=== PATIENT | male | born 1950 | race Caucasian/White ===

== ENCOUNTER 2019-04-07 08:10 | Outpatient (CLI) | payer OTHER, SELFPAY ==
[2019-04-07] VITALS (10 sets, daily range): BP systolic 105–146; BP diastolic 68–91; PULSE 55–70; RESP 16–20; TEMP 36.2; O2SAT 94–99
--- NOTE | 2019-04-07 08:13 | DI.RAD.S_ITS ---
PROCEDURE: PAIN L/S TRANSFORAMINAL INJECT INDICATIONS: RADICULOPATHY FINDINGS: Fluoroscopic spot filming was performed to verify placement of spinal needles at the right L4-5 neural foramen region for epidural steroid injection, as labeled on the films. Appropriate location(s) of the needle tip(s) was confirmed by injection of iodinated contrast. IMPRESSION: Successful right-sided needle tip localization for epidural steroid injection along the course of the nerve root, right L4-L5 paravertebral level. Dictated by: Tl Trujillo M.D. on 04/07/2019 at 10:23 Approved by: Tl Trujillo M.D. on 04/07/2019 at 10:24
[2019-04-07] MEDS: MIDAZOLAM 5 MG/5 ML VIAL IV (09:06)
[2019-04-07] MEDS: fentaNYL 100 MCG/2 ML INJ 50 MCG IV (09:07)
[2019-04-07] MEDS: IOPAMIDOL 15 ML VIAL 3 ML INJ (09:14)
[2019-04-07] MEDS: DEXAMETHASONE 10 MG/ML VIAL 20 MG INJ (09:14)
[2019-04-07] MEDS: BETAMETHASONE 30 MG/5 ML MDV 6 MG INJ (09:14)
[2019-04-07] MEDS: BUPIVACAINE 0.25% (PF) VIAL 2 ML INJ (09:14)
--- NOTE | 2019-04-07 09:21 | PC.NURSE ---
ASSISTING PT OFF TABLE AND TRANSPORTING TO POST PROC AREA IN STABLE CONDITION
--- NOTE | 2019-04-07 09:28 | P.PCN_ITS ---
Procedures Date/Time Date of procedure: 04/07/19 Time of procedure: 09:28 General Procedure description: PREOP DIAGNOSIS 1. FORMAINAL STENOSIS WITH LE SYMPTOMS POST OP DIAGNOSIS 1. FORMAINAL STENOSIS WITH LE SYMPTOMS PROCEDURES 1. FLUOROSCOPICALLY GUIDED CONTRAST CONTROLLED TRANSFORAMINAL EPIDURAL STEROID INJECTION - RIGHT L4/5 TFESI PHYSICIAN: Philip Perez DO INDICATIONS: Zaki is referred by for treatment of Foraminal Stenosis with Right LE Symptoms FINDINGS Foraminal Nerve Root Compression secondary to disc disease and facet hypertrophy DESCRIPTION OF PROCEDURE: Following review of allergy and review of potential side effects and complications, including, but not necessarily limited to, infection, allergic reaction, local tissue breakdown, stroke, temporary or permanent nerve injury, paralysis, and possible , the patient indicated that the patient understood and agreed to proceed. An informed consent document was signed by the patient, witnessed by a nurse, and placed in the patient's chart. Additionally, other treatment options including medications, modalities, and physical therapy were reviewed with the patient. After review of previous anaesthesic history and IV conscious sedation the patient was deemed safe to proceed with todays procedure with IV conscious sedation as ASA class II designation. Safety time-out was performed to confirm patient ID, procedure to be performed and site of procedure. IV sedation was accomplished with a combination of 2mg of Versed and 50mcg of Fentanyl was administered by the RN after DO order, titrated to patient comfort during the course of the procedure while the patient remained responsive to all verbal commands In the prone position following sterile prep and drape of the lumbar region, the Right L4/5 posterior neuroforamen was identified fluoroscopically. The skin was anesthetized via a 25-gauge 1.5-inch needle with 1% lidocaine solution. At this point, a 25-gauge 3.5-inch spinal needle was atraumatically introduced and advanced under fluoroscopic guidance through the posterior Right L4/5 neuroforamen to approximately the anterior aspect of the canal. Depth was confirmed on lateral view. Following negative aspiration, injection of approximately 1.5 cc of Isovue 200 under live fluoroscopy in the AP view confirmed excellent flow along the nerve root, into the epidural space without vascular or intrathecal uptake observed Radiological data, including multiple fluoroscopic views of the lumbosacral spine, reveal a spinal needle at the right L4/5 posterior neuroforamen. Subsequent views show flow of contrast material flowing superiorly and inferiorly along the nerve root confirming epidural flow. Subsequently, a test dose of 1.5 cc of 1% lidocaine solution was administered and patient was observed for two minutes for signs or symptoms of complications, including abdominal pain, shortness of breath, bilateral upper or lower extremity weakness, nausea and vomiting, prior to steroid injection. At this point, a total of 3cc or 20mg of dexamethasone and 6mg of betamethasone was injected without incident. The procedure tolerated the procedure well without signs or symptoms of complications prior to transfer to the recovery area continued monitoring without incident.The patient was then transferred to the recovery area where they were observed for an appropriate time after the injection. The patient reported a VAS score of 7 prior to the procedure and a post- procedure VAS of 0. Total Fluoroscopy Time: 20.9 seconds Total Conscious Sedation Time: 24min POST OP INSTRUCTIONS The patient was provided a Pain Log to continue to record their response to the target-specific procedure prior to follow-up visit with their referring physician. Additionally, specific post-injection care instructions and a contact number to our office were provided if concerns arise regarding possible complications associated with the procedure are suspected. Philip Perez, Complications: none
--- NOTE | 2019-04-07 09:29 | PC.NURSE ---
To recovery room at 0925 stable and ambulatory to chair
== END 2019-04-07 09:51 | disposition home or self-care (01) ==
LOC: RAD 08:11
PROVIDERS: PCP Family Medicine; Visit Provider Physical Medicine & Rehabilitation
DX: M48.061 Spinal stenosis, lumbar region without neurogenic claudication (principal); M51.16 Intervertebral disc disorders with radiculopathy, lumbar region; M47.27 Other spondylosis with radiculopathy, lumbosacral region
CPT/HCPCS: 64483; 99152; J0702; J1100; J2250; J3010

== ENCOUNTER 2019-06-12 12:59 | Outpatient (CLI) | payer OTHER, SELFPAY ==
[2019-06-12] VITALS (8 sets, daily range): BP systolic 128–142; BP diastolic 75–98; PULSE 61–72; RESP 16–20; TEMP 36.2; O2SAT 93–98
--- NOTE | 2019-06-12 13:00 | DI.RAD.S_ITS ---
PROCEDURE: PAIN L/SI FACET INJ/BLK 1STL INDICATIONS: SPONDYLOSIS FINDINGS: Fluoroscopic spot filming was performed to verify placement of spinal needles at the L4-L5 and L5-S1 level(s), as labeled on the films. Appropriate location(s) of the needle tip(s) was confirmed by injection of iodinated contrast. IMPRESSION: Fluoroscopy for pain management. Dictated by: Juju Francisco M.D. on 06/12/2019 at 17:09 Approved by: Juju Francisco M.D. on 06/12/2019 at 17:09
[2019-06-12] MEDS: MIDAZOLAM 5 MG/5 ML VIAL IV (14:17)
[2019-06-12] MEDS: fentaNYL 100 MCG/2 ML INJ 50 MCG IV (14:19)
[2019-06-12] MEDS: LIDOCAINE 1% 20 ML 10 ML INJ (14:23)
[2019-06-12] MEDS: IOPAMIDOL 15 ML VIAL 3 ML INJ (14:23)
[2019-06-12] MEDS: BETAMETHASONE 30 MG/5 ML MDV 12 MG INJ (14:24)
[2019-06-12] MEDS: BUPIVACAINE 0.5% (PF) VIAL 2 ML INJ (14:24)
--- NOTE | 2019-06-12 14:25 | PC.NURSE ---
ASSISTING PT OFF TABLE AND TRANSPORTING TO POST PROC AREA IN STABLE CONDITION.
--- NOTE | 2019-06-12 14:29 | P.PCN_ITS ---
Procedures Date/Time Date of procedure: 06/12/19 Time of procedure: 14:29 General Procedure description: PREOP DIAGNOSIS 1. FACET ARTHROPATHY, 2. AXIAL LBP, 3. MULTILEVEL DDD, POST OP DIAGNOSIS 1. FACET ARTHROPATHY, 2. AXIAL LBP, 3. MULTILEVEL DDD, PROCEDURES 1. FLUORSCOPICALLY GUIDED CONTRAST CONTROLLED FACET JOINT INJECTIONS RIGHT L4/5, L5/S1 SURGEON: Philip Perez, DO INDICATIONS Zaki is referred by CANDE Franz for treatment of Axial LBP FINDINGS Multilevel Facet Arthropathy with Clinically significant axial LBP DESCRIPTION OF PROCEDURE Fluoroscopically guided, contrast-controlled right L4/5, L5/S1 facet joint injections. Following review of allergy and review of potential side effects and complications, including, but not necessarily limited to, infection, allergic reaction, local tissue breakdown, stroke, temporary or permanent nerve injury, paralysis, and possible , the patient indicated that the patient understood and agreed to proceed. An informed consent document was signed by the patient, witnessed by a nurse, and placed in the patient's chart. Additionally, other treatment options including medications, modalities, and physical therapy were reviewed with the patient. After review of previous anaesthesic history and IV conscious sedation the patient was deemed safe to proceed with todays procedure with IV conscious sedation as ASA class II designation. Safety time-out was performed to confirm patient ID, procedure to be performed and site of procedure. IV sedation was accomplished with a combination of 3 of Versed and 50mcg of Fentanyl was administered by the RN after DO order, titrated to patient comfort during the course of the procedure while the patient remained responsive to all verbal commands. In the prone position, following sterile prep and drape of the lumbar region, the posterior aspect of the right L4/5, L5/S1 facet joints were identified fluoroscopically. The skin was anesthetized via a 25-gauge 1.5-inch needle with 1% lidocaine solution into the corresponding facet joints. At this point, a 22- gauge 3.5-inch spinal needle was atraumatically introduced and advanced under fluoroscopic guidance into the corresponding facet joints. Following negative aspiration, injections of approximately 0.2-cc of Isovue 200 confirmed interarticular placement without vascular uptake. Radiological data, including multiple fluoroscopic views of the lumbosacral spine, reveal a spinal needle at the right L4/5, L5/S1 facet joints. Subsequent views show flow of contrast material both superiorly and inferiorly within the joint space without vascular or intrathecal uptake. At this point, a total of 0.5 cc including a mixture of 0.25cc Marcaine and 0.25cc betamethasone was injected without complication into each of the corresponding facet joints. The procedure tolerated the procedure well without signs or symptoms of complications prior to transfer to the recovery area continued monitoring without incident. The patient was then transferred to the recovery area where they were observed for an appropriate period of time after the injection. The patient reported a VAS score of 7 prior to the procedure and a post-procedure VAS of 0. Total Fluoroscopy Time: 12.7 seconds Total Conscious Sedation Time: 24min POST OP INSTRUCTIONS The patient was provided a Pain Log to continue to record their response to the target-specific procedure prior to follow-up visit with their referring physician. Additionally, specific post-injection care instructions and a contact number to our office were provided if concerns arise regarding possible complications associated with the procedure are suspected. Philip Perez, Complications: none
== END 2019-06-12 14:53 | disposition home or self-care (01) ==
LOC: RAD 13:00
PROVIDERS: PCP Physician Assistant; Visit Provider Physical Medicine & Rehabilitation
DX: M47.816 Spondylosis without myelopathy or radiculopathy, lumbar region (principal); M47.817 Spondylosis without myelopathy or radiculopathy, lumbosacral region; M54.5 Low back pain; M51.36 Other intervertebral disc degeneration, lumbar region; M51.37 Other intervertebral disc degeneration, lumbosacral region
CPT/HCPCS: 64493; 99152; J0702; J2250; J3010

== ENCOUNTER 2019-09-01 14:44 | Outpatient (CLI) | payer OTHER, SELFPAY ==
[2019-09-01] VITALS (8 sets, daily range): BP systolic 115–127; BP diastolic 69–81; PULSE 56–66; RESP 14–18; TEMP 36.1; O2SAT 96–98
--- NOTE | 2019-09-01 14:47 | DI.RAD.S_ITS ---
PROCEDURE: PAIN L/S TRANSFORAMINAL INJECT INDICATIONS: SPINAL STENOSIS FINDINGS: Fluoroscopic spot filming was performed to verify placement of spinal needles at the L4-L5 level(s), as labeled on the films. Appropriate location(s) of the needle tip(s) was confirmed by injection of iodinated contrast. Dictated by: Uli Quach M.D. on 09/01/2019 at 16:45 Approved by: Uli Quach M.D. on 09/01/2019 at 16:45
[2019-09-01] MEDS: MIDAZOLAM 5 MG/5 ML VIAL IV (15:41)
[2019-09-01] MEDS: IOPAMIDOL 15 ML VIAL 3 ML INJ (15:49)
[2019-09-01] MEDS: BETAMETHASONE 30 MG/5 ML MDV 6 MG INJ (15:49)
[2019-09-01] MEDS: BUPIVACAINE 0.25% (PF) VIAL 2 ML INJ (15:49)
[2019-09-01] MEDS: DEXAMETHASONE 10 MG/ML VIAL 20 MG INJ (15:50)
--- NOTE | 2019-09-01 15:54 | PC.NURSE ---
ASSISTING PT OFF TABLE AND TRANSPORTING TO POST PROC AREA IN STABLE CONDITION. PASSING RN CARE OF PT OFF TO NA Warner RN.
--- NOTE | 2019-09-01 15:56 | P.PCN_ITS ---
Procedures Date/Time Date of procedure: 09/01/19 Time of procedure: 15:56 General Procedure description: PREOP DIAGNOSIS 1. FORMAINAL STENOSIS WITH LE SYMPTOMS POST OP DIAGNOSIS 1. FORMAINAL STENOSIS WITH LE SYMPTOMS PROCEDURES 1. FLUOROSCOPICALLY GUIDED CONTRAST CONTROLLED TRANSFORAMINAL EPIDURAL STEROID INJECTION - RIGHT L4/5 TFESI PHYSICIAN: Philip Perez DO INDICATIONS: Zaki is referred by CANDE Franz for treatment of Foraminal Stenosis with Right LE Symptoms FINDINGS Foraminal Nerve Root Compression secondary to disc disease and facet hypertrophy DESCRIPTION OF PROCEDURE: Following review of allergy and review of potential side effects and complications, including, but not necessarily limited to, infection, allergic reaction, local tissue breakdown, stroke, temporary or permanent nerve injury, paralysis, and possible , the patient indicated that the patient understood and agreed to proceed. An informed consent document was signed by the patient, witnessed by a nurse, and placed in the patient's chart. Additionally, other treatment options including medications, modalities, and physical therapy were reviewed with the patient. After review of previous anaesthesic history and IV conscious sedation the patient was deemed safe to proceed with todays procedure with IV conscious sedation as ASA class II designation. Safety time-out was performed to confirm patient ID, procedure to be performed and site of procedure. IV sedation was accomplished with 3mg of Versed was administered by the RN after DO order, titrated to patient comfort during the course of the procedure while the patient remained responsive to all verbal commands In the prone position following sterile prep and drape of the lumbar region, the Right L4/5 posterior neuroforamen was identified fluoroscopically. The skin was anesthetized via a 25-gauge 1.5-inch needle with 1% lidocaine solution. At this point, a 25-gauge 3.5-inch spinal needle was atraumatically introduced and advanced under fluoroscopic guidance through the posterior Right L4/5 neuroforamen to approximately the anterior aspect of the canal. Depth was confirmed on lateral view. Following negative aspiration, injection of approximately 1.5 cc of Isovue 200 under live fluoroscopy in the AP view confirmed excellent flow along the nerve root, into the epidural space without vascular or intrathecal uptake observed Radiological data, including multiple fluoroscopic views of the lumbosacral spine, reveal a spinal needle at the right L4/5 posterior neuroforamen. Subsequent views show flow of contrast material flowing superiorly and inferiorly along the nerve root confirming epidural flow. Subsequently, a test dose of 1.5 cc of 0.25 Marcaine solution was administered and patient was observed for two minutes for signs or symptoms of complications, including abdominal pain, shortness of breath, bilateral upper or lower extremity weakness, nausea and vomiting, prior to steroid injection. At this point, a total of 3cc or 20mg of dexamethasone and 6mg of betamethasone was injected without incident. The procedure tolerated the procedure well without signs or symptoms of complications prior to transfer to the recovery area continued monitoring without incident.The patient was then transferred to the recovery area where they were observed for an appropriate time after the injection. The patient reported a VAS score of 7 prior to the procedure and a post- procedure VAS of 0. Total Fluoroscopy Time: 9seconds Total Conscious Sedation Time: 24min POST OP INSTRUCTIONS The patient was provided a Pain Log to continue to record their response to the target-specific procedure prior to follow-up visit with their referring physician. Additionally, specific post-injection care instructions and a contact number to our office were provided if concerns arise regarding possible complications associated with the procedure are suspected. Philip Perez DO Complications: none
--- NOTE | 2019-09-01 16:19 | PC.NURSE ---
Pt vital signs meet discharge criteria, however, will continue to monitor pt due to unsteady gait.
--- NOTE | 2019-09-01 17:19 | PC.NURSE ---
Pt continues to have unsteady gait, Provider at bedside assessing pt, care handed off to Evita LI.
== END 2019-09-01 17:40 | disposition home or self-care (01) ==
LOC: RAD 14:46
PROVIDERS: PCP Physician Assistant; Visit Provider Physical Medicine & Rehabilitation
DX: M48.061 Spinal stenosis, lumbar region without neurogenic claudication (principal); M51.16 Intervertebral disc disorders with radiculopathy, lumbar region
CPT/HCPCS: 64483; 99152; J0702; J1100; J2250; J3010

== ENCOUNTER → 2020-06-21 08:58 | Outpatient (CLI) | payer MEDICARE, OTHER, SELFPAY ==
[2020-06-21 11:06] LABS: COVID19 -Nasal RAPID Negative (Negative)
== END ==
PROVIDERS: PCP Physician Assistant; Visit Provider Physical Medicine & Rehabilitation
DX: Z11.59 Encounter for screening for other viral diseases (principal)
CPT/HCPCS: 87635; C9803

== ENCOUNTER 2020-06-23 14:19 | Outpatient (CLI) | payer MEDICARE, OTHER, SELFPAY ==
[2020-06-23] VITALS (8 sets, daily range): BP systolic 117–136; BP diastolic 72–85; PULSE 56–63; RESP 12–18; TEMP 36.1–36.4; O2SAT 93–98
--- NOTE | 2020-06-23 14:21 | DI.RAD.S_ITS ---
PROCEDURE: PAIN L/S TRANSFORAMINAL INJECT INDICATIONS: SPONDYLOSIS COMPARISON: [facility], , PAIN L/S TRANSFORAMINAL INJECT, 09/01/2019, 15:44. FINDINGS: Fluoroscopic spot filming was performed to verify placement of a spinal needle at the L4-L5 level, as labeled on the films. Appropriate location of the needle tip was confirmed by injection of iodinated contrast. IMPRESSION: Intraprocedural examination within normal limits. Dictated by: Dixon Steel M.D. on 06/23/2020 at 16:22 Approved by: Dixon Steel M.D. on 06/23/2020 at 16:23
[2020-06-23] MEDS: fentaNYL 100 MCG/2 ML INJ 50 MCG IV (15:00)
[2020-06-23] MEDS: MIDAZOLAM 5 MG/5 ML VIAL IV (15:00)
[2020-06-23] MEDS: BUPIVACAINE 0.25% (PF) VIAL 2 ML INJ (15:07)
[2020-06-23] MEDS: IOPAMIDOL 15 ML VIAL 3 ML INJ (15:07)
[2020-06-23] MEDS: BETAMETHASONE 30 MG/5 ML MDV 6 MG INJ (15:08)
[2020-06-23] MEDS: DEXAMETHASONE 10 MG/ML VIAL 20 MG INJ (15:08)
--- NOTE | 2020-06-23 15:11 | P.PCN_ITS ---
Date/Time/Diagnoses Date of procedure: 06/23/20 Time of procedure: 15:12 Pre-procedure diagnosis: 1. FORAMINAL STENOSIS WITH LE SYMPTOMS Post-procedure diagnosis: same Procedure Notes Procedure: 1. FLUOROSCOPICALLY GUIDED CONTRAST CONTROLLED TRANSFORAMINAL EPIDURAL STEROID INJECTION - RIGHT L4/5 TFESI Indications: Zaki is referred by CANDE Franz for treatment of Foraminal Stenosis with Right LE Symptoms Physician: Philip Perez Total Fluoroscopy time (seconds): 7 Total sedation minutes: 7 Complications: none Procedure in detail & Post-procedure care: FINDINGS Foraminal Nerve Root Compression secondary to disc disease and facet hypertrophy DESCRIPTION OF PROCEDURE Following review of allergy and review of potential side effects and complications, including, but not necessarily limited to, infection, allergic reaction, local tissue breakdown, stroke, temporary or permanent nerve injury, paralysis, and possible , the patient indicated that the patient understood and agreed to proceed. An informed consent document was signed by the patient, witnessed by a nurse, and placed in the patient's chart. Additionally, other treatment options including medications, modalities, and physical therapy were reviewed with the patient. After review of previous anaesthesic history and IV conscious sedation the patient was deemed safe to proceed with today?s procedure with IV conscious sedation as ASA class II designation. Safety time-out was performed to confirm patient ID, procedure to be performed and site of procedure. IV sedation was accomplished with a combination of 2mg of Versed and 50mcg of Fentanyl was administered by the RN after DO order, titrated to patient comfort during the course of the procedure while the patient remained responsive to all verbal c ommands In the prone position following sterile prep and drape of the lumbar region, the Right L4/5 posterior neuroforamen was identified fluoroscopically. The skin was anesthetized via a 25-gauge 1.5-inch needle with 1% lidocaine solution. At this point, a 25-gauge 3.5-inch spinal needle was atraumatically introduced and advanced under fluoroscopic guidance through the posterior Right L4/5 neuroforamen to approximately the anterior aspect of the canal. Depth was confirmed on lateral view. Following negative aspiration, injection of approximately 1.5cc of Isovue 200 under live fluoroscopy in the AP view confirmed excellent flow along the nerve root, into the epidural space without vascular or intrathecal uptake observed Radiological data, including multiple fluoroscopic views of the lumbosacral spine, reveal a spinal needle at the right L4/5 posterior neuroforamen. Subsequent views show flow of contrast material flowing superiorly and inferiorly along the nerve root confirming epidural flow. Subsequently, a test dose of 1.5 cc of 1% lidocaine solution was administered and patient was observed for two minutes for signs or symptoms of complications, including abdominal pain, shortness of breath, bilateral upper or lower extremity weakness, nausea and vomiting, prior to steroid injection. At this point, a total of 3cc or 20mg of dexamethasone and 6mg of betamethasone was injected without incident. The procedure tolerated the procedure well without signs or symptoms of complications prior to transfer to the recovery area continued monitoring without incident. The patient was then transferred to the recovery area where they were observed for an appropriate time after the injection. The patient reported a VAS score of 7 prior to the procedure and a post- procedure VAS of 0. POST OP INSTRUCTIONS The patient was provided a Pain Log to continue to record their response to the target-specific procedure prior to follow-up visit with their referring physician. Additionally, specific post-injection care instructions and a contact number to our office were provided if concerns arise regarding possible complications associated with the procedure are suspected.
== END 2020-06-23 15:30 | disposition home or self-care (01) ==
LOC: RAD 14:21
PROVIDERS: PCP Physician Assistant; Referring Provider Physician Assistant; Visit Provider Physical Medicine & Rehabilitation
DX: M48.061 Spinal stenosis, lumbar region without neurogenic claudication (principal); M47.27 Other spondylosis with radiculopathy, lumbosacral region; M43.16 Spondylolisthesis, lumbar region
CPT/HCPCS: 64483; J0702; J1100; J2250; J3010

== ENCOUNTER → 2020-08-15 09:48 | Outpatient (CLI) | payer MEDICARE, OTHER, SELFPAY ==
--- NOTE | 2020-08-15 09:50 | DI.RAD.S_ITS ---
PROCEDURE: XR LUMBAR SPINE MIN 4V INDICATIONS: progressive LBP TECHNIQUE: 5 views of the lumbar spine were acquired. COMPARISON: Outside Film, CR, XR LUMBAR SPINE 2 OR 3 VIEWS, 10/09/2018, 15:59. Outside Film, CR, XR LUMBAR SPINE 2 OR 3 VIEWS, 10/09/2018, 15:59. Outside Film, MR, MR LUMBAR SPINE WITHOUT CONTRAST, 11/07/2018, 8:56. FINDINGS: Bones: 5 nonrib-bearing vertebrae are present. There is grade 2 L4-L5 anterolisthesis secondary to L4 part intake ileus defects and facet hypertrophy. No vertebral body compression fractures. No suspicious bony lesions. Severe L4-L5 degenerative disc disease. Mild to moderate L1-L2, L2-L3 and L5-S1 degenerative disc disease. Mild L3-L4 degenerative disc disease. Mild L1-L2, L2-L3, L3-L4 facet arthropathy. My L4-L5 and L5-S1 facet arthropathy. Soft tissues: Overlying bowel gas pattern is normal. No suspicious soft tissue calcifications. Oblique images: Bilateral L4 pars interarticularis defects. IMPRESSION: 1. Grade 2 L5-S1 spondylolisthesis. 2. Multilevel degenerative disease. 3. Multilevel facet arthropathy Dictated by: Kenia Bassett MD, PhD on 08/15/2020 at 11:04 Approved by: Kenia Bassett MD, PhD on 08/15/2020 at 11:09
== END ==
PROVIDERS: PCP Physician Assistant; Referring Provider Physical Medicine & Rehabilitation; Visit Provider Physical Medicine & Rehabilitation
DX: M47.816 Spondylosis without myelopathy or radiculopathy, lumbar region (principal); M47.817 Spondylosis without myelopathy or radiculopathy, lumbosacral region; M51.36 Other intervertebral disc degeneration, lumbar region; M51.37 Other intervertebral disc degeneration, lumbosacral region; M43.17 Spondylolisthesis, lumbosacral region; M17.11 Unilateral primary osteoarthritis, right knee; M19.049 Primary osteoarthritis, unspecified hand; M43.16 Spondylolisthesis, lumbar region
CPT/HCPCS: 72110; 99215

== ENCOUNTER → 2021-01-31 08:10 | Outpatient (CLI) | payer MEDICARE, OTHER, SELFPAY ==
[2021-01-31 12:25] LABS: COVID19 -Nasal RAPID Negative (Negative)
== END ==
PROVIDERS: PCP Physician Assistant; Visit Provider Physical Medicine & Rehabilitation
DX: Z20.822 Contact with and (suspected) exposure to COVID-19 (principal)
CPT/HCPCS: 87635; C9803

== ENCOUNTER 2021-02-02 12:14 | Outpatient (CLI) | payer MEDICARE, OTHER, SELFPAY ==
[2021-02-02] VITALS (8 sets, daily range): BP systolic 117–126; BP diastolic 57–80; PULSE 59–85; RESP 13–20; TEMP 36.8; O2SAT 95–99
--- NOTE | 2021-02-02 12:18 | DI.RAD.S_ITS ---
PROCEDURE: PAIN L/S TRANSFORAMINAL INJECT INDICATIONS: SPONDYLOSIS COMPARISON: [facility], XA, PAIN L/S TRANSFORAMINAL INJECT, 06/23/2020, 15:02. [facility], XA, PAIN L/S TRANSFORAMINAL INJECT, 09/01/2019, 15:44. FINDINGS: Fluoroscopic spot filming was performed to verify placement of spinal needles at the right L4-5 neural foramen level(s), as labeled on the films. Appropriate location(s) of the needle tip(s) was confirmed by injection of iodinated contrast. IMPRESSION: Successful needle tip localization at the right L4-5 neural foramen for transforaminal epidural steroid injection. Dictated by: Tl Trujillo M.D. on 02/02/2021 at 14:34 Approved by: Tl Trujillo M.D. on 02/02/2021 at 14:34
[2021-02-02] MEDS: MIDAZOLAM 5 MG/5 ML VIAL IV (13:15)
[2021-02-02] MEDS: fentaNYL 100 MCG/2 ML INJ 50 MCG IV (13:15)
[2021-02-02] MEDS: BUPIVACAINE 0.25% (PF) VIAL 2 ML INJ (13:22)
[2021-02-02] MEDS: BETAMETHASONE 30 MG/5 ML MDV 6 MG INJ (13:22)
[2021-02-02] MEDS: IOPAMIDOL 15 ML VIAL 3 ML INJ (13:22)
[2021-02-02] MEDS: DEXAMETHASONE 10 MG/ML VIAL 20 MG INJ (13:22)
--- NOTE | 2021-02-02 13:27 | P.PCN_ITS ---
Date/Time/Diagnoses Date of procedure: 02/02/21 Time of procedure: 13:27 Pre-procedure diagnosis: 1. FORAMINAL STENOSIS WITH LE SYMPTOMS Post-procedure diagnosis: same Procedure Notes Procedure: 1. FLUOROSCOPICALLY GUIDED CONTRAST CONTROLLED TRANSFORAMINAL EPIDURAL STEROID INJECTION - RIGHT L4/5 TFESI Indications: Zaki is referred by Dr. Rucker for treatment of Foraminal Stenosis with Right LE Symptoms Physician: Philip Perez Total Fluoroscopy time (seconds): 7 Total sedation minutes: 10 Complications: none Procedure in detail & Post-procedure care: FINDINGS Foraminal Nerve Root Compression secondary to disc disease and facet hypertrophy DESCRIPTION OF PROCEDURE Following review of allergy and review of potential side effects and complications, including, but not necessarily limited to, infection, allergic reaction, local tissue breakdown, stroke, temporary or permanent nerve injury, paralysis, and possible , the patient indicated that the patient understood and agreed to proceed. An informed consent document was signed by the patient, witnessed by a nurse, and placed in the patient's chart. Additionally, other treatment options including medications, modalities, and physical therapy were reviewed with the patient. After review of previous anaesthesic history and IV conscious sedation the patient was deemed safe to proceed with today?s procedure with IV conscious sedation as ASA class II designation. Safety time-out was performed to confirm patient ID, procedure to be performed and site of procedure. IV sedation was accomplished with a combination of 2mg of Versed and 50mcg of Fentanyl was administered by the RN after DO order, titrated to patient comfort during the course of the procedure while the patient remained responsive to all verbal com mands In the prone position following sterile prep and drape of the lumbar region, the right L4/5 posterior neuroforamen was identified fluoroscopically. The skin was anesthetized via a 25-gauge 1.5-inch needle with 1% lidocaine solution. At this point, a 25-gauge 3.5-inch spinal needle was atraumatically introduced and advanced under fluoroscopic guidance through the posterior right L4/5 ne uroforamen to approximately the anterior aspect of the canal. Depth was confirmed on lateral view. Following negative aspiration, injection of approximately 1.5cc of Isovue 200 under live fluoroscopy in the AP view confirmed excellent flow along the nerve root, into the epidural space without vascular or intrathecal uptake observed Radiological data, including multiple fluoroscopic views of the lumbosacral spine, reveal a spinal needle at the right L4/5 posterior neuroforamen. Subsequent views show flow of contrast material flowing superiorly and inferiorly along the nerve root confirming epidural flow. Subsequently, a test dose of 1.5 cc of 1% lidocaine solution was administered and patient was observed for two minutes for signs or symptoms of complications, including abdominal pain, shortness of breath, bilateral upper or lower extremity weakness, nausea and vomiting, prior to steroid injection. At this point, a total of 3cc or 20mg of dexamethasone and 6mg of betamethasone was injected without incident. The procedure tolerated the procedure well without signs or symptoms of complications prior to transfer to the recovery area continued monitoring without incident. The patient was then transferred to the recovery area where they were observed for an appropriate time after the injection. The patient reported a VAS score of 7 prior to the procedure and a post-pr ocedure VAS of 0. POST OP INSTRUCTIONS The patient was provided a Pain Log to continue to record their response to the target-specific procedure prior to follow-up visit with their referring physician. Additionally, specific post-injection care instructions and a contact number to our office were provided if concerns arise regarding possible complications associated with the procedure are suspected.
== END 2021-02-02 13:49 | disposition home or self-care (01) ==
LOC: RAD 12:18
PROVIDERS: PCP Family Medicine; Referring Provider Physical Medicine & Rehabilitation; Visit Provider Physical Medicine & Rehabilitation
DX: M48.061 Spinal stenosis, lumbar region without neurogenic claudication (principal); M51.16 Intervertebral disc disorders with radiculopathy, lumbar region
CPT/HCPCS: 64483; 99152; J0702; J1100; J2250; J3010

== ENCOUNTER → 2021-03-06 08:46 | Outpatient (CLI) | payer MEDICARE, OTHER, SELFPAY ==
[2021-03-06 13:54] LABS: COVID19 -Nasal RAPID Negative (Negative)
== END ==
PROVIDERS: PCP Family Medicine; Visit Provider Physical Medicine & Rehabilitation
DX: Z20.822 Contact with and (suspected) exposure to COVID-19 (principal)
CPT/HCPCS: 87635; C9803

== ENCOUNTER 2021-03-07 12:10 | Outpatient (CLI) | payer MEDICARE, OTHER, SELFPAY ==
[2021-03-07] VITALS (8 sets, daily range): BP systolic 123–140; BP diastolic 65–82; PULSE 69–82; RESP 12–18; TEMP 36.7; O2SAT 95–99
--- NOTE | 2021-03-07 12:13 | DI.RAD.S_ITS ---
PROCEDURE: PAIN L INTERLAMINAR/CAUDAL INJ INDICATIONS: SPONDYLOSIS COMPARISON: [facility], , PAIN L/S TRANSFORAMINAL INJECT, 02/02/2021, 13:19. FINDINGS: Fluoroscopic spot filming was performed to verify placement of a spinal needle at the L4-L5 level, as labeled on the films. Appropriate location of the needle tip was confirmed by injection of iodinated contrast. IMPRESSION: Intraprocedural examination within normal limits. Dictated by: Dixon Steel M.D. on 03/07/2021 at 12:53 Approved by: Dixon Steel M.D. on 03/07/2021 at 12:54
[2021-03-07] MEDS: fentaNYL 100 MCG/2 ML INJ 50 MCG IV (13:10)
[2021-03-07] MEDS: MIDAZOLAM 5 MG/5 ML VIAL IV (13:14)
[2021-03-07] MEDS: IOPAMIDOL 15 ML VIAL 3 ML INJ (13:15)
[2021-03-07] MEDS: BUPIVACAINE 0.25% (PF) VIAL 2 ML INJ (13:16)
[2021-03-07] MEDS: methylPREDNISolone acetate 80 MG/ML VIAL INJ (13:16)
[2021-03-07] MEDS: DEXAMETHASONE 10 MG/ML VIAL 20 MG INJ (13:16)
--- NOTE | 2021-03-07 13:21 | P.PCN_ITS ---
Date/Time/Diagnoses Date of procedure: 03/07/21 Time of procedure: 13:22 Pre-procedure diagnosis: 1. HNP WITH RADICULAR FEATURES, 2. MULTILEVEL CENTRAL STENOSIS, Post-procedure diagnosis: same Procedure Notes Procedure: 1. FLUOROSCOPICALLY GUIDED CONTRAST CONTROLLED INTERLAMINAR EPIDURAL STEROID INJECTION -L4/5 Indications: Zaki is referred by Dr. Rucker for treatment of Bilateral Foraminal Stenosis R>L LE symptoms. Physician: Philip Perez Total Fluoroscopy time (seconds): 5 Total sedation minutes: 8 Complications: none Procedure in detail & Post-procedure care: FINDINGS Multilevel Central Spinal Stenosis with Nerve Root Compression DESCRIPTION OF PROCEDURE Fluoroscopically guided, contrast-controlled L4/5 translaminar epidural steroid injection. Following review of allergy and review of potential side effects and complications, including, but not necessarily limited to, infection, allergic reaction, local tissue breakdown, temporary as well as permanent nerve injury, paralysis, stroke and possible , the patient indicated that the patient understood and agreed to proceed. An informed consent document was signed by the patient, witnessed by a nurse, and placed in the patient's chart. Additionally, other treatment options including modalities, medications, and physical therapy were reviewed with the patient. After review of previous anaesthesic history and IV conscious sedation the patient was deemed safe to proceed with today?s procedure with IV conscious sedation as ASA class II designation. Safety time-out was performed to confirm patient ID, procedure to be performed and site of procedure. IV sedation was accomplished with a combination of 3mg of Versed and 50mcg of Fentanyl was administered by the RN after DO order, titrated to patient comfort during the course of the procedure while the patient remained responsive to all verbal commands In the prone position, following sterile prep and drape of the lumbar region, the L4/5 translaminar space was identified fluoroscopically. The skin was anesthetized via a 25-gauge, 1.5inch needle with 1% lidocaine solution. At this point, a 22-gauge short bevel spinal needle was atraumatically introduced and advanced under fluoroscopic guidance into the region of the L4/5 translaminar space. Depth was confirmed on lateral view. Radiological data, including multiple fluoroscopic views of the lumbar spine, reveal a spinal needle at the L4/5 translaminar space. Lateral views then show placement of the needle in the epidural space. Subsequent views show contrast material flowing superiorly and inferiorly in the epidural space. No vascular or intrathecal uptake is observed. At this point, using loss of resistance technique with saline and air, the epidural space was entered. This was confirmed following negative aspiration with injection of approximately 1.5cc of Isovue 200, showing excellent epidural flow without vascular or intrathecal uptake. At this point, 1cc of 1% lidocaine solution combined with 3cc or 20mg of dexamethasone and 80mg Depo medrol was injected without incident. The patient tolerated the procedure well without signs or symptoms of complications prior to transfer to the recovery area continued monitoring without incident. The patient was then transferred to the recovery area where they were observed for an appropriate period of time after the injection. The patient reported a VAS score of 6 prior to the procedure and a post- procedure VAS of 0. POST OP INSTRUCTIONS The patient was provided a Pain Log to continue to record their response to the target-specific procedure prior to follow-up visit with their referring physician. Additionally, specific post-injection care instructions and a contact number to our office were provided if concerns arise regarding possible complications associated with the procedure are suspected.
== END 2021-03-07 13:50 | disposition home or self-care (01) ==
LOC: RAD 12:13
PROVIDERS: PCP Family Medicine; Referring Provider Physical Medicine & Rehabilitation; Visit Provider Physical Medicine & Rehabilitation
DX: M51.16 Intervertebral disc disorders with radiculopathy, lumbar region (principal); M48.061 Spinal stenosis, lumbar region without neurogenic claudication
CPT/HCPCS: 62323; J1040; J1100; J2250; J3010

== ENCOUNTER → 2024-04-28 12:16 | Outpatient (CLI) | payer MEDICARE, OTHER, SELFPAY ==
--- NOTE | 2024-04-28 12:18 | DI.RAD.S_ITS ---
PROCEDURE: XR SACROILIAC JOINT MIN 3V INDICATIONS: BACK PAIN TECHNIQUE: 3 views of the sacroiliac joints were acquired. COMPARISON: [facility], CR, XR PELVIS 1 OR 2 VIEWS, 04/25/2023, 9:55. FINDINGS: Bones: No bony erosions or ankylosis. Mild bilateral sacroiliac joint osteoarthritis. No suspicious bony lesions. No fractures. Please see the same-day lumbar spine x-ray for details regarding the lumbar spine. Soft tissues: Overlying bowel gas pattern is normal. No suspicious soft tissue densities. IMPRESSION: Mild bilateral sacroiliac joint osteoarthritis. Dictated by: Faisal Grossman M.D. on 04/28/2024 at 15:08 Approved by: Faisal Grossman M.D. on 04/28/2024 at 15:10
--- NOTE | 2024-04-28 12:18 | DI.RAD.S_ITS ---
PROCEDURE: XR LUMBAR SPINE MIN 4V INDICATIONS: BACK PAIN TECHNIQUE: 5 views of the lumbar spine were acquired, including bilateral oblique views. COMPARISON: [facility], MR, MR LUMBAR SPINE WITHOUT CONTRAST, 05/10/2021, 16:41. [facility], CR, XR LUMBAR SPINE MIN 4V, 08/15/2020, 9:51. FINDINGS: Bones: Rudimentary ribs at T12. 5 nonrib-bearing vertebrae are present. Grade 1 anterolisthesis of L4 on L5, similar to the MRI lumbar spine of 05/10/2021. Otherwise, the lumbar lordosis is preserved. Chronic, bilateral pars interarticularis defects at L4-L5. Hypertrophy of the spinous processes, which can be seen with Baastrup's disease. Multilevel facet arthropathy, most conspicuous at L4-L5 and L5-S1. No vertebral body compression fractures. No suspicious bony lesions. Soft tissues: Overlying bowel gas pattern is normal. No suspicious soft tissue calcifications. Multilevel intervertebral disc height loss, most conspicuous at L4-L5 and L5-S1. Oblique images: No pars defects. IMPRESSION: 1. Grade 1 anterolisthesis of L4 on L5 secondary to bilateral pars interarticularis defects, similar to the 05/10/2021 MRI lumbar spine exam. 2. Multilevel osteoarthrosis of the lumbar spine. Dictated by: Faisal Grossman M.D. on 04/28/2024 at 15:02 Approved by: Faisal Grossman M.D. on 04/28/2024 at 15:08
== END ==
PROVIDERS: PCP Family Medicine; Referring Provider Physical Medicine & Rehabilitation; Visit Provider Physical Medicine & Rehabilitation
DX: M47.27 Other spondylosis with radiculopathy, lumbosacral region (principal); M47.28 Other spondylosis with radiculopathy, sacral and sacrococcygeal region; M47.26 Other spondylosis with radiculopathy, lumbar region; M48.061 Spinal stenosis, lumbar region without neurogenic claudication; M43.16 Spondylolisthesis, lumbar region; M96.1 Postlaminectomy syndrome, not elsewhere classified; M16.12 Unilateral primary osteoarthritis, left hip; M17.11 Unilateral primary osteoarthritis, right knee
CPT/HCPCS: 72110; 72202; 99214

== ENCOUNTER 2024-05-26 10:06 | Outpatient (CLI) | payer MEDICARE, OTHER, SELFPAY ==
[2024-05-26] VITALS (9 sets, daily range): BP systolic 116–150; BP diastolic 69–91; PULSE 56–96; RESP 10–18; TEMP 36.4; O2SAT 93–98
--- NOTE | 2024-05-26 10:45 | DI.RAD.S_ITS ---
PROCEDURE: PAIN L/S TRANSFORAMINAL INJECT INDICATIONS: Right L4-5 transforaminal RORY COMPARISON: [facility], , PAIN L/S TRANSFORAMINAL INJECT, 02/02/2021, 13:19. FINDINGS: Fluoroscopic spot filming was performed to verify placement of spinal needles at the right L4-5 level(s), as labeled on the films. Appropriate location(s) of the needle tip(s) was confirmed by injection of iodinated contrast. IMPRESSION: Fluoroscopic guidance for an L4-5 epidural steroid injection. Dictated by: Loki Chavarria M.D. on 05/26/2024 at 16:47 Approved by: Loki Chavarria M.D. on 05/26/2024 at 16:48
[2024-05-26] MEDS: MIDAZOLAM 2 MG/2 ML VIAL IV (11:58)
[2024-05-26] MEDS: BUPIVACAINE 0.25% (PF) VIAL 2 ML INJ (12:00)
[2024-05-26] MEDS: iopamidoL 15 ML VIAL 3 ML INJ (12:00)
[2024-05-26] MEDS: DEXAMETHASONE 10 MG/ML VIAL INJ (12:01)
[2024-05-26] MEDS: BETAMETHASONE 30 MG/5 ML MDV 6 MG INJ (12:01)
--- NOTE | 2024-05-26 12:12 | P.PCN_ITS ---
Date/Time/Diagnoses Date of procedure: 05/26/24 Time of procedure: 12:12 Pre-procedure diagnosis: 1. FORAMINAL STENOSIS WITH LE SYMPTOMS Post-procedure diagnosis: same Procedure Notes Procedure: 1. FLUOROSCOPICALLY GUIDED CONTRAST CONTROLLED TRANSFORAMINAL EPIDURAL STEROID INJECTION - RIGHT L4/5 TFESI Indications: Zaki is referred by Dr. Rucker for treatment of Foraminal Stenosis with Right LE Symptoms Physician: Philip Perez Total Fluoroscopy time (seconds): 10 Total sedation minutes: 10 Complications: none Procedure in detail & Post-procedure care: FINDINGS Foraminal Nerve Root Compression secondary to disc disease and facet hypertrophy DESCRIPTION OF PROCEDURE Following review of allergy and review of potential side effects and complications, including, but not necessarily limited to, infection, allergic reaction, local tissue breakdown, stroke, temporary or permanent nerve injury, paralysis, and possible , the patient indicated that the patient understood and agreed to proceed. An informed consent document was signed by the patient, witnessed by a nurse, and placed in the patient's chart. Additionally, other treatment options including medications, modalities, and physical therapy were reviewed with the patient. After review of previous anaesthesic history and IV conscious sedation the patient was deemed safe to proceed with today?s procedure with IV conscious sedation as ASA class II designation. Safety time-out was performed to confirm patient ID, procedure to be performed and site of procedure. IV sedation was accomplished with a combination of 2mg of Versed was administered by the RN after DO order, titrated to patient comfort during the course of the procedure while the patient remained responsive to all verbal commands In the prone position following sterile prep and drape of the lumbar region, the right L4/5 posterior neuroforamen was identified fluoroscopically. The skin was anesthetized via a 25-gauge 1.5-inch needle with 1% lidocaine solution. At this point, a 25-gauge 3.5-inch spinal needle was atraumatically introduced and advanced under fluoroscopic guidance through the posterior right L4/5 neuroforamen to approximately the anterior aspect of the canal. Depth was confirmed on lateral view. Following negative aspiration, injection of approximately 1.5cc of Isovue 200 under live fluoroscopy in the AP view c onfirmed excellent flow along the nerve root, into the epidural space without vascular or intrathecal uptake observed Radiological data, including multiple fluoroscopic views of the lumbosacral spi ne, reveal a spinal needle at the right L4/5 posterior neuroforamen. Subsequent views show flow of contrast material flowing superiorly and inferiorly along the nerve root confirming epidural flow. Subsequently, a test dose of 1.5 cc of 1% lidocaine solution was administered and patient was observed for two minutes for signs or symptoms of complications, including abdominal pain, shortness of breath, bilateral upper or lower extremity weakness, nausea and vomiting, prior to steroid injection. At this point, a total of 2cc or 10mg of dexamethasone and 6mg of betamethasone was injected without incident. The procedure tolerated the procedure well without signs or symptoms of complications prior to transfer to the recovery area continued monitoring without incident. The patient was then transferred to the recovery area where they were observed for an appropriate time after the injection. The patient reported a VAS score of 7 prior to the procedure and a post- procedure VAS of 0. POST OP INSTRUCTIONS The patient was provided a Pain Log to continue to record their response to the target-specific procedure prior to follow-up visit with their referring physician. Additionally, specific post-injection care instructions and a contact number to our office were provided if concerns arise regarding possible complications associated with the procedure are suspected.
== END 2024-05-26 12:44 | disposition home or self-care (01) ==
LOC: RAD 10:06
PROVIDERS: PCP Family Medicine; Referring Provider Physical Medicine & Rehabilitation; Visit Provider Physical Medicine & Rehabilitation
DX: M48.061 Spinal stenosis, lumbar region without neurogenic claudication (principal); M51.16 Intervertebral disc disorders with radiculopathy, lumbar region; M47.26 Other spondylosis with radiculopathy, lumbar region
CPT/HCPCS: 64483; 99152; J0702; J1100; J2250; J3490

== ENCOUNTER 2024-09-01 09:49 | Outpatient (CLI) | payer MEDICARE, OTHER, SELFPAY ==
[2024-09-01] VITALS (10 sets, daily range): BP systolic 119–150; BP diastolic 61–86; PULSE 55–64; RESP 11–20; TEMP 36.6; O2SAT 94–99
--- NOTE | 2024-09-01 09:52 | DI.RAD.S_ITS ---
PROCEDURE: PAIN L/S TRANSFORAMINAL INJECT INDICATIONS: Right L4-5 and L5-S1 transforaminal RORY COMPARISON: [facility], , PAIN L/S TRANSFORAMINAL INJECT, 05/26/2024, 11:59. FINDINGS/IMPRESSION: Fluoroscopic spot filming was performed to verify placement of spinal needles at the L4 through S1 level(s), as labeled on the films. Appropriate location(s) of the needle tip(s) was confirmed by injection of iodinated contrast. Dictated by: Loki Chavarria M.D. on 09/01/2024 at 16:28 Approved by: Loki Chavarria M.D. on 09/01/2024 at 16:28
[2024-09-01] MEDS: MIDAZOLAM 2 MG/2 ML VIAL 1 MG IV ×2 (11:26→11:33)
[2024-09-01] MEDS: BUPIVACAINE 0.25% (PF) VIAL 2 ML INJ (11:31)
[2024-09-01] MEDS: BETAMETHASONE 30 MG/5 ML MDV 12 MG INJ (11:32)
[2024-09-01] MEDS: DEXAMETHASONE 10 MG/ML VIAL 20 MG INJ (11:32)
[2024-09-01] MEDS: iopamidoL 15 ML VIAL 3 ML INJ (11:33)
--- NOTE | 2024-09-01 11:50 | P.PCN_ITS ---
Date/Time/Diagnoses Date of procedure: 09/01/24 Time of procedure: 11:50 Pre-procedure diagnosis: 1. FORAMINAL STENOSIS WITH LE SYMPTOMS Post-procedure diagnosis: same Procedure Notes Procedure: 1. FLUOROSCOPICALLY GUIDED CONTRAST CONTROLLED TRANSFORAMINAL EPIDURAL STEROID INJECTION - RIGHT L4/5 TFESI Indications: Zaki is referred by Dr. Rucker for treatment of Foraminal Stenosis with Right LE Symptoms Physician: Philip Perez Total Fluoroscopy time (seconds): 19 Total sedation minutes: 20 Complications: none Procedure in detail & Post-procedure care: FINDINGS Foraminal Nerve Root Compression secondary to disc disease and facet hypertrophy DESCRIPTION OF PROCEDURE Following review of allergy and review of potential side effects and complications, including, but not necessarily limited to, infection, allergic reaction, local tissue breakdown, stroke, temporary or permanent nerve injury, paralysis, and possible , the patient indicated that the patient understood and agreed to proceed. An informed consent document was signed by the patient, witnessed by a nurse, and placed in the patient's chart. Additionally, other treatment options including medications, modalities, and physical therapy were reviewed with the patient. After review of previous anaesthesic history and IV conscious sedation the patient was deemed safe to proceed with today?s procedure with IV conscious sedation as ASA class II designation. Safety time-out was performed to confirm patient ID, procedure to be performed and site of procedure. IV sedation was accomplished with a combination of 2mg of Versed was administered by the RN after DO order, titrated to patient comfort during the course of the procedure while the patient remained responsive to all verbal commands In the prone position following sterile prep and drape of the lumbar region, the right L4/5 posterior neuroforamen was identified fluoroscopically. The skin was anesthetized via a 25-gauge 1.5-inch needle with 1% lidocaine solution. At this point, a 25-gauge 3.5-inch spinal needle was atraumatically introduced and advanced under fluoroscopic guidance through the posterior right L4/5 neuroforamen to approximately the anterior aspect of the canal. Depth was confirmed on lateral view. Following negative aspiration, injection of approximately 1.5cc of Isovue 200 under live fluoroscopy in the AP view c onfirmed excellent flow along the nerve root, into the epidural space without vascular or intrathecal uptake observed Radiological data, including multiple fluoroscopic views of the lumbosacral spi ne, reveal a spinal needle at the right L4/5 posterior neuroforamen. Subsequent views show flow of contrast material flowing superiorly and inferiorly along the nerve root confirming epidural flow. Subsequently, a test dose of 1.5 cc of 1% lidocaine solution was administered and patient was observed for two minutes for signs or symptoms of complications, including abdominal pain, shortness of breath, bilateral upper or lower extremity weakness, nausea and vomiting, prior to steroid injection. At this point, a total of 2cc or 10mg of dexamethasone and 6mg of betamethasone was injected without incident. The procedure tolerated the procedure well without signs or symptoms of complications prior to transfer to the recovery area continued monitoring without incident. The patient was then transferred to the recovery area where they were observed for an appropriate time after the injection. The patient reported a VAS score of 7 prior to the procedure and a post- procedure VAS of 1. POST OP INSTRUCTIONS The patient was provided a Pain Log to continue to record their response to the target-specific procedure prior to follow-up visit with their referring physician. Additionally, specific post-injection care instructions and a contact number to our office were provided if concerns arise regarding possible complications associated with the procedure are suspected.
--- NOTE | 2024-09-01 11:51 | P.PCN_ITS ---
Date/Time/Diagnoses Date of procedure: 09/01/24 Time of procedure: 11:51 Pre-procedure diagnosis: FORAMINAL STENOSIS WITH LE SYMPTOMS Post-procedure diagnosis: same Procedure Notes Procedure: 1. FLUOROSCOPICALLY GUIDED CONTRAST CONTROLLED TRANSFORAMINAL EPIDURAL STEROID INJECTION - RIGHT L5/S1 TFESI Indications: Zaki is referred by Dr. Rucker for treatment of Foraminal Stenosis with Right LE Symptoms Physician: Philip Perez Total Fluoroscopy time (seconds): 19 Total sedation minutes: 20 Complications: none Procedure in detail & Post-procedure care: FINDINGS Foraminal Nerve Root Compression secondary to disc disease and facet hypertrophy DESCRIPTION OF PROCEDURE Following review of allergy and review of potential side effects and complications, including, but not necessarily limited to, infection, allergic r eaction, local tissue breakdown, stroke, temporary or permanent nerve injury, paralysis, and possible , the patient indicated that the patient understood and agreed to proceed. An informed consent document was signed by the patient, witnessed by a nurse, and placed in the patient's chart. Additionally, other treatment options including medications, modalities, and physical therapy were reviewed with the patient. After review of previous anaesthesic history and IV conscious sedation the patient was deemed safe to proceed with today?s procedure with IV conscious sedation as ASA class II designation. Safety time-out was performed to confirm patient ID, procedure to be performed and site of procedure. IV sedation was accomplished with a combination of 2mg of Versed was administered by the RN after DO order, titrated to patient comfort during the course of the procedure while the patient remained responsive to all verbal commands In the prone position following sterile prep and drape of the lumbar region, the right L5/S1 posterior neuroforamen was identified fluoroscopically. The skin was anesthetized via a 25-gauge 1.5-inch needle with 1% lidocaine solution. At this point, a 25-gauge 3.5-inch spinal needle was atraumatically introduced and advanced under fluoroscopic guidance through the posterior right L5/S1 neuroforamen to approximately the anterior aspect of the canal. Depth was confirmed on lateral view. Following negative aspiration, injection of approximately 1.5cc of Isovue 200 under live fluoroscopy in the AP view confirmed excellent flow along the nerve root, into the epidural space without vascular or intrathecal uptake observed Radiological data, including multiple fluoroscopic views of the lumbosacral spine, reveal a spinal needle at the right L5/S1 posterior neuroforamen. Subsequent views show flow of contrast material flowing superiorly and inferiorly along the nerve root confirming epidural flow. Subsequently, a test dose of 1.5 cc of 1% lidocaine solution was administered and patient was observed for two minutes for signs or symptoms of complications, including abdominal pain, shortness of breath, bilateral upper or lower extre mity weakness, nausea and vomiting, prior to steroid injection. At this point, a total of 2cc or 10mg of dexamethasone and 6mg of betamethasone was injected without incident. The procedure tolerated the procedure well without signs or symptoms of complications prior to transfer to the recovery area continued monitoring without incident. The patient was then transferred to the recovery area where they were observed for an appropriate time after the injection. The patient reported a VAS score of 7 prior to the procedure and a post- procedure VAS of 0. POST OP INSTRUCTIONS The patient was provided a Pain Log to continue to record their response to the target-specific procedure prior to follow-up visit with their referring physician. Additionally, specific post-injection care instructions and a contact number to our office were provided if concerns arise regarding possible complications associated with the procedure are suspected.
== END 2024-09-01 12:18 | disposition home or self-care (01) ==
LOC: RAD 09:52
PROVIDERS: PCP Family Medicine; Referring Provider Physical Medicine & Rehabilitation; Visit Provider Physical Medicine & Rehabilitation
DX: M43.16 Spondylolisthesis, lumbar region (principal); M51.16 Intervertebral disc disorders with radiculopathy, lumbar region; M51.17 Intervertebral disc disorders with radiculopathy, lumbosacral region
CPT/HCPCS: 64483; 64484; 99152; J0702; J1100; J2250; J3490

== ENCOUNTER 2025-02-09 14:15 | Outpatient (CLI) | payer MEDICARE, OTHER, SELFPAY ==
[2025-02-09 15:29] VITALS: BP 159/72; PULSE 60; RESP 12; TEMP 36.4; O2SAT 96
[2025-02-09 15:49] VITALS: BP 156/77; PULSE 60; RESP 16; O2SAT 97
[2025-02-09] MEDS: MIDAZOLAM 2 MG/2 ML VIAL IV (15:52)
[2025-02-09 16:00] VITALS: BP 137/74; PULSE 56; RESP 16; O2SAT 96
[2025-02-09] MEDS: BUPIVACAINE 0.5% (PF) 10 ML VIAL 2 ML INJ (16:00)
[2025-02-09] MEDS: BETAMETHASONE 30 MG/5 ML MDV 12 MG INJ (16:00)
[2025-02-09] MEDS: BETAMETHASONE 30 MG/5 ML MDV 6 MG INJ (16:01)
[2025-02-09 16:05] VITALS: BP 138/75; PULSE 58; RESP 16; O2SAT 96
--- NOTE | 2025-02-09 16:11 | PM.PROC.IR.1 ---
Date/Time/Diagnoses Date of procedure: 02/09/25 Time of procedure: 16:11 Pre-procedure diagnosis: Sacroiliac joint pain/DJD Post-procedure diagnosis: same Procedure Notes Procedure: Fluoroscopic guided contrast controlled bilateral sacroiliac joint injection Indications: Zaki is referred by Dr. Rucker for treatment of bilateral sacroiliac joint DJD Physician: Philip Perez Total Fluoroscopy time (seconds): 12 Total sedation minutes: 17 Complications: none Procedure in detail & Post-procedure care: Description of procedure Fluoroscopic guided, contrast controlled bilateral sacroiliac joint injection Following review of allergies and review of potential side effects and complications, including, but not necessarily limited to, infection, allergic reaction, local tissue breakdown, temporary as well as permanent nerve injury, paralysis, stroke and possible , the patient indicated that they understood and agreed to proceed. An informed consent was signed by the patient, witnessed by a nurse, and placed in the patient's chart. Additionally, other treatment options including modalities, medications, and physical therapy were reviewed with the patient. After review of previous anaesthesic history and IV conscious sedation the patient was deemed safe to proceed with today?s procedure with IV conscious sedation as ASA class II designation. Safety time-out was performed to confirm patient ID, procedure to be performed and site of procedure. IV sedation was accomplished with a combination of 2mg Versed were administered by the RN after DO order, titrated to patient comfort during the course of the procedure while the patient remained responsive to all verbal commands In the prone position following sterile prep and drape of the pelvic region, the hyper lucency on in the inferior aspect of the sacroiliac joint was identified fluoroscopically the skin was anesthetized be a 25 gauge 1.5 inch needle with approximately 2cc of 1% lidocaine solution. At this point, a 22 gauge 3 in spinal needle was atraumatically introduced and advanced under fluoroscopic guidance into the inferior aspect of the right sacroiliac joint. Following negative aspiration, approximately 0.3cc of Isovue-300 was injected confirming intra-articular placement without vascular uptake. Radiographic data, including multiple fluoroscopic views of the pelvis, reveals a spinal needle in the sacroiliac joint hyper lucent zone. Subsequent view show flow contrast tear superiorly and inferiorly within the joint capsule without vascular intrathecal uptake. At this point a total of 1cc of 0.5% Marcaine was combined with 1cc of 6mg of betamethasone was injected without incident. Attention was then refocused the left sacroiliac joint where the procedure was replicated. The procedure tolerated the procedure well without signs or symptoms of complications prior to transfer to the recovery area continued monitoring without incident. The patient was then transferred to the recovery area with a bur observed for an appropriate time after the injection. The patient reverted a vas score of 7 prior to the procedure and post-procedure vas of 1. Postop instructions The patient was provided with a pain like to continue to record the patient's response to the target specific procedure prior to the patient's follow-up visit with the referring physician. Additionally, specific post injection care instructions and a contact number to our office were provided if concerns arise regarding the possible complications associated with procedure are suspected.
[2025-02-09 16:17] VITALS: BP 148/68; PULSE 55; RESP 13; O2SAT 98
[2025-02-09 16:22] VITALS: BP 121/83; PULSE 61; RESP 16; O2SAT 97
== END 2025-02-09 16:45 | disposition home or self-care (01) ==
LOC: RAD 14:15
PROVIDERS: PCP Family Medicine; Referring Provider Physical Medicine & Rehabilitation; Visit Provider Physical Medicine & Rehabilitation
DX: M46.1 Sacroiliitis, not elsewhere classified (principal); M53.3 Sacrococcygeal disorders, not elsewhere classified
CPT/HCPCS: 27096; 77002; 99152; J0702; J2250

== ENCOUNTER 2025-07-15 07:46 | Outpatient (CLI) | payer MEDICARE, OTHER, SELFPAY ==
[2025-07-15] VITALS (8 sets, daily range): BP systolic 124–156; BP diastolic 68–81; PULSE 58–70; RESP 14–20; TEMP 36.7; O2SAT 93–97
[2025-07-15] MEDS: MIDAZOLAM 2 MG/2 ML VIAL IV (09:29)
[2025-07-15] MEDS: LIDOCAINE 1% 20 ML 5 ML INJ (09:36)
--- NOTE | 2025-07-15 09:48 | PM.PROC.IR.1 ---
Date/Time/Diagnoses Date of procedure: 07/15/25 Time of procedure: 09:49 Pre-procedure diagnosis: Sacroiliac joint pain/DJD Post-procedure diagnosis: same Procedure Notes Procedure: Fluoroscopic guided contrast controlled bilateral sacroiliac joint injection Indications: Zaki is referred by Dr. Rucker for treatment of bilateral sacroiliac joint DJD Physician: Philip Perez Total Fluoroscopy time (seconds): 12 Total sedation minutes: 15 Complications: none Procedure in detail & Post-procedure care: Description of procedure Fluoroscopic guided, contrast controlled bilateral sacroiliac joint injection Following review of allergies and review of potential side effects and complications, including, but not necessarily limited to, infection, allergic reaction, local tissue breakdown, temporary as well as permanent nerve injury, paralysis, stroke and possible , the patient indicated that they understood and agreed to proceed. An informed consent was signed by the patient, witnessed by a nurse, and placed in the patient's chart. Additionally, other treatment options including modalities, medications, and physical therapy were reviewed with the patient. After review of previous anaesthesic history and IV conscious sedation the patient was deemed safe to proceed with today?s procedure with IV conscious sedation as ASA class II designation. Safety time-out was performed to confirm patient ID, procedure to be performed and site of procedure. IV sedation was accomplished with a combination of 2mg Versed were administered by the RN after DO order, titrated to patient comfort during the course of the procedure while the patient remained responsive to all verbal commands In the prone position following sterile prep and drape of the pelvic region, the hyper lucency on in the inferior aspect of the sacroiliac joint was identified fluoroscopically the skin was anesthetized be a 25 gauge 1.5 inch needle with approximately 2cc of 1% lidocaine solution. At this point, a 22 gauge 3 in spinal needle was atraumatically introduced and advanced under fluoroscopic guidance into the inferior aspect of the right sacroiliac joint. Following negative aspiration, approximately 0.3cc of Isovue-300 was injected confirming intra-articular placement without vascular uptake. Radiographic data, including multiple fluoroscopic views of the pelvis, reveals a spinal needle in the sacroiliac joint hyper lucent zone. Subsequent view show flow contrast tear superiorly and inferiorly within the joint capsule without vascular intrathecal uptake. At this point a total of 1cc of 0.5% Marcaine was combined with 1cc of 6mg of betamethasone was injected without incident. Attention was then refocused the left sacroiliac joint where the procedure was replicated. The procedure tolerated the procedure well without signs or symptoms of complications prior to transfer to the recovery area continued monitoring without incident. The patient was then transferred to the recovery area with a bur observed for an appropriate time after the injection. The patient reverted a vas score of 7 prior to the procedure and post-procedure vas of 1. Postop instructions The patient was provided with a pain like to continue to record the patient's response to the target specific procedure prior to the patient's follow-up visit with the referring physician. Additionally, specific post injection care instructions and a contact number to our office were provided if concerns arise regarding the possible complications associated with procedure are suspected.
== END 2025-07-15 12:43 | disposition home or self-care (01) ==
PROVIDERS: PCP Family Medicine; Referring Provider Physical Medicine & Rehabilitation; Visit Provider Physical Medicine & Rehabilitation
DX: M46.1 Sacroiliitis, not elsewhere classified (principal); M53.3 Sacrococcygeal disorders, not elsewhere classified
CPT/HCPCS: 27096; 99152; J2250

== ENCOUNTER → 2025-07-30 16:55 | Outpatient (CLI) | payer MEDICARE, OTHER, SELFPAY ==
--- NOTE | 2025-07-30 16:56 | DI.MRI.S_ITS ---
PROCEDURE: MR LUMBAR SPINE WO CON INDICATIONS: Worsening LB and SI pain s/p procedure TECHNIQUE: Noncontrast sagittal T1 spin echo and T2 fast echo, sagittal STIR, and T2 fast spin echo through the lumbar spine. In cases with scoliosis, additional coronal T2 fast spin echo may be performed. COMPARISON: [facility], XA, PAIN SI JOINT INJECTION VENKAT, 07/15/2025, 10:33. FINDINGS: Image quality: Patient motion degrades examination.. Alignment and Curvature: Grade 1 anterolisthesis at L4-L5. Bone Marrow: Marrow is of normal overall signal. No acute vertebral body compression fractures. Spinal Cord: Conus medullaris terminates at the L1 level. Visualized cord demonstrates normal signal and size. Paraspinous Soft Tissues: No paravertebral masses. T12-L1: Mild degenerative disc disease and posterior bulge with no central canal or foraminal narrowing. L1-L2: Posterior disc bulge and facet hypertrophy with mild bilateral foraminal narrowing and no central canal narrowing. L2-L3: Posterior disc bulge and facet hypertrophy with mild right and moderate left foraminal narrowing and mild central canal narrowing. L3-L4: Posterior disc bulge and facet hypertrophy with mild bilateral foraminal narrowing and mild central canal narrowing. L4-L5: Anterolisthesis with pseudo disc bulge. Left facet hypertrophy and ligamentum flavum thickening with severe bilateral foraminal narrowing and mild central canal narrowing. L5-S1: Posterior disc bulge and facet hypertrophy with moderate left and severe right foraminal narrowing. Mild central canal narrowing. IMPRESSION: Multilevel degenerative change with severe foraminal narrowing bilaterally at L4-L5 in part secondary to anterolisthesis. Severe foraminal narrowing at left L5-S1 as well. No acute abnormality. Dictated by: Chaz Michelle M.D. on 07/30/2025 at 18:22 Approved by: Chaz Michelle M.D. on 07/30/2025 at 18:27
== END ==
PROVIDERS: PCP Family Medicine; Referring Provider Physical Medicine & Rehabilitation; Visit Provider Physical Medicine & Rehabilitation
DX: M47.27 Other spondylosis with radiculopathy, lumbosacral region (principal); M47.26 Other spondylosis with radiculopathy, lumbar region; M43.16 Spondylolisthesis, lumbar region; M53.3 Sacrococcygeal disorders, not elsewhere classified; M48.061 Spinal stenosis, lumbar region without neurogenic claudication; M48.07 Spinal stenosis, lumbosacral region
CPT/HCPCS: 72148